=== PATIENT | female | born 1980 | race African-American/Black ===

== ENCOUNTER 2025-07-21 06:04 | Day surgery (SDC) | payer BC ==
[2025-07-15 08:27] VITALS: BMI 23.4
[2025-07-21] MEDS ORDERED: PROPOFOL 40 ML ONE ×2 (07:38→08:01)
== END 2025-07-21 08:47 | disposition home or self-care (01) ==
LOC: CSHSDC 06:04
PROVIDERS: ATTEND Surgery
PROC: 0DJD8ZZ Inspection of Lower Intestinal Tract, Via Natural or Artificial Opening Endoscopic (ICD-10-PCS; principal; 2025-07-21)
DX: K64.1 Second degree hemorrhoids (principal); K64.4 Residual hemorrhoidal skin tags; D64.9 Anemia, unspecified; Z87.59 Personal history of other complications of pregnancy, childbirth and the puerperium; Z98.890 Other specified postprocedural states
CPT/HCPCS: J2704